=== PATIENT | female | born 2000 | race Caucasian/White ===

== ENCOUNTER 2018-09-26 13:29 | Outpatient (CLI) | payer OTHER ==
--- NOTE | 2018-09-26 16:15 | US ---
EXAMINATION TYPE: US OB limited DATE OF EXAM: 09/26/2018 COMPARISON: NONE CLINICAL HISTORY: R/O ROM. pelvic pressure, leaking fluid. EXAM PERFORMED: GESTATIONAL AGE / DATING Physician Established: (29 weeks/6 days) EDC: 12/06/2018 SURVEY PLACENTA: Anterior PREVIA: No Previa Ultrasound evidence of abruption? SB: 14.6 cm Normal Ultrasound evidence of premature rupture of membranes? no CERVICAL LENGTH (transabdominal: norm > 3.0cm): 3.4 cm Ultrasound evidence of cervical incompetence? no PRESENTATION: Vertex HEART RATE: 129 bpm RHYTHM: Normal No suspicious cervical thinning. Normal cephalad presentation to fetus is seen. Single live intrauter ine gestation is noted. Amniotic fluid index is calculated within normal limits. IMPRESSION: As above.
[2018-09-26 18:26] VITALS: BP 115/71; PULSE 101; RESP 18; TEMP 97.4
--- NOTE | 2018-09-27 08:55 | P.MSEPDOC ---
Presenting Problems - Arrival Data Date of Arrival on Unit: 09/26/18 Time of Arrival on Unit: 13:40 Mode of Transport: Ambulatory - Complaint OB-Reason for Admission/Chief Complaint: Rule Out SROM Medical History - Information : 2 Para: 1 Term: 1 Abortions: Spontaneous or Elective: 0 Number of Living Children: 1 - Gestational Age Gestational Age by ISAI (wks/days): 29 Weeks and 6 Days Review of Systems - Review of Systems Constitutional: No problems Breast: No problems ENT: No problems Cardiovascular: No problems Respiratory: No problems Gastrointestinal: No problems Genitourinary: No problems Musculoskeletal: No problems Neurological: No problems Skin: No problems Vital Signs - Temperature Temperature: 97.4 F Temperature Source: Oral - Pulse Right Brachial Pulse Rate: 101 Pulse Assessment Method: Automatic Cuff - Respirations Respiratory Rate: 18 Oxygen Delivery Method: Room Air O2 Sat by Pulse Oximetry: 100 - Blood Pressure Right Arm Blood Pressure: 115/71 Blood Pressure Mean: 85 Blood Pressure Source: Automatic Cuff Medical Screen Scoring (Pre) - Cervical Exam Dilation: 0 cm = 0 Membranes: Intact - Uterine Contractions Frequency: N/A Duration: N/A Intensity: N/A - Maternal Vital Signs Maternal Temperature: N/A Maternal Blood Pressure: N/A Signs of Preeclampsia: N/A Maternal Respirations: N/A - Maternal Trauma Maternal Trauma: N/A - Assessment - Baby A Baseline FHR: 135 Heart Rate - NICHD Category: Category I (Normal) = 0 NST: Reactive Position: N/A Station: N/A - Total Score - Baby A Total Score - Baby A: 0 - Total Score - Baby B Total Score - Baby B: 0 - Total Score - Baby C Total Score - Baby C: 0 - Level of Risk - Baby A Level of Risk - Baby A: Low (0-5) - Level of Risk - Baby B Level of Risk - Baby B: Low (0-5) - Level of Risk - Baby C Level of Risk - Baby C: Low (0-5) Physician Notification (Pre) - Physician Notified Physician/Practitioner Notifed:: YES Spoke With: SWAPNA New Order Received: Yes - Notification Comment Comment: DISCH HOME. TO KEEP NEXT SCHED APPDavid CUM[facility]. Disposition - Disposition OB Disposition: Discharge to home Discharge Date: 09/26/18 Discharge Time: 15:45 I agree with the RN Medical Screening Exam: Yes Risk & Benefit of care provided described in d/c instruction: Yes Diagnosis: FALSE LABOR BEFORE 37 COMPLETED WEEKS OF GEST, THIRD TRI
== END 2018-09-26 15:45 | disposition home or self-care (01) ==
LOC: FBPOP 13:29
PROVIDERS: ATTEND Obstetrics & Gynecology
DX: O47.03 False labor before 37 completed weeks of gestation, third trimester (principal); Z3A.29 29 weeks gestation of pregnancy
CPT/HCPCS: 59025; 76815; G0463; 99213

== ENCOUNTER 2018-11-30 06:00 | Inpatient (IN) | payer OTHER ==
[2018-11-30] MEDS ORDERED: OXYTOCIN 10 UNIT/ML 1 ML VIAL IM PRN (06:35)
[2018-11-30] MEDS ORDERED: LIDOCAINE 0.5% (PF) 5 MG/ML (50 ML SDV) SQ PRN (06:35)
[2018-11-30] MEDS ORDERED: TERBUTALINE 1 MG/ML VIAL SQ PRN (06:35)
[2018-11-30] MEDS ORDERED: CARBOPROST TROMETHAMINE 250 MCG/ML 1 ML AMP IM PRN (06:35)
[2018-11-30] MEDS ORDERED: METHYLERGONOVINE 0.2 MG/ML 1 ML AMP IM PRN (06:35)
[2018-11-30] MEDS ORDERED: AMPICILLIN 2,000 MG in SODIUM CHLORIDE 0.9% 100 ML IVPB STA (06:35)
[2018-11-30] MEDS ORDERED: OXYTOCIN 30 UNITS/500 ML NS 30 UNIT in SALINE 1 500ML.BAG IV SCH (06:45)
[2018-11-30 06:50] VITALS: BMI 25.2
[2018-11-30] MEDS: LACTATED RINGERS 1,000 ML IV SCH ×2 (06:53→09:46)
[2018-11-30 07:14] LABS: Anisocytosis Slight; Basophils % (A) 0 %; Eosinophils # (A) 0.1 k/uL (0-0.7); Eosinophils % (A) 1 %; HCT 33.4 % (34.0-46.0); HGB 10.9 gm/dL (11.4-16.0); Hypochromasia Slight; Lymphocytes # (A) 1.9 k/uL (1.0-4.8); Lymphocytes % (A) 17 %; MCH 27.9 pg (25.0-35.0); MCHC 32.6 g/dL (31.0-37.0); MCV 85.7 fL (80.0-100.0); Mean Platelet Volume 11.3; Monocytes # (A) 0.7 k/uL (0-1.0); Monocytes % (A) 6 %; Neutrophils # (A) 8.2 k/uL (1.3-7.7); Neutrophils % (A) 75 %; RBC 3.89 m/uL (3.80-5.40); RDW 17.6 % (11.5-15.5)
[2018-11-30 08:02] LABS: Large Platelets Present; Platelet Count 220 k/uL (150-450)
[2018-11-30] MEDS ORDERED: BUTORPHANOL 1 MG/ML 1 ML VIAL IV PRN (08:31)
[2018-11-30] MEDS ORDERED: ROPIVACAINE 100 MG, fentaNYL (PF) 200 MCG in SODIUM CHLORIDE 0.9% 76 ML EPIDURAL ONE (10:03)
[2018-11-30] MEDS ORDERED: AMPICILLIN 1,000 MG in SODIUM CHLORIDE 0.9% 50 ML IVPB SCH (11:00)
[2018-11-30] MEDS ORDERED: diphenhydrAMINE 25 MG CAP PO PRN (12:58)
[2018-11-30] MEDS ORDERED: ZOLPIDEM 5 MG TAB PO PRN (12:58)
[2018-11-30] MEDS ORDERED: SIMETHICONE 80 MG CHEWABLE PO PRN (12:58)
[2018-11-30] MEDS ORDERED: WITCH HAZEL 1 EACH MED..PAD TOPICAL PRN (12:58)
[2018-11-30] MEDS ORDERED: HYDROCORTISONE 2.5% RECTAL CREAM 30 GM TUBE RECTAL PRN (12:58)
[2018-11-30] MEDS ORDERED: diphenhydrAMINE 50 MG CAP PO PRN (12:58)
[2018-11-30] MEDS ORDERED: LANOLIN CREAM 5 GM TUBE TOPICAL PRN (12:58)
[2018-11-30] MEDS ORDERED: BENZOCAINE/MENTHOL SPRAY 1 GM/SPRAY AEROSOL TOPICAL PRN (12:58)
[2018-11-30] MEDS ORDERED: OXYTOCIN 20 UNITS/1000 ML NS 1,000 ML IV SCH (13:00)
--- NOTE | 2018-11-30 17:04 | P.HPOB ---
History of Present Illness H&P Date: 11/30/18 Chief Complaint: Intrauterine at term: Induction of labor Patient is a 18-year-old at 39 weeks who is here for induction of labor. Her Precis course has been relatively unremarkable. 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 This she is 39 weeks and is dilated to 2-1/2 cm and artificial rupture membranes was performed clear fluid noted. There is a category 1 tracing noted. Otherwise her vital signs are stable and afebrile. Heart regular, lungs clear, extremities without pain. Abdomen soft gravid uterus is noted. Assessment intrauterine at term. Plan expect spontaneous vaginal delivery and plan is for an epidural for analgesia. Pitocin augmentation of labor. 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 Past Anesthesia/Blood Transfusion Reactions: No Reported Reaction Past Psychological History: No Psychological Hx Reported Smoking Status: Never smoker Past Alcohol Use History: None Reported Past Drug Use History: None Reported - Past Family History Father History Unknown: Yes Additional Family Medical History / Comment(s): pt adopted Mother History Unknown: Yes Additional Family Medical History / Comment(s): pt adopted Medications and Allergies Home Medications Medication Instructions Recorded Confirmed Type Pnv No.95/Ferrous Fum/Folic AC 1 b PO DAILY 09/26/18 11/30/18 History [ Multivitamin Tablet] Allergies Allergy/AdvReac Type Severity Reaction Status Date / Time No Known Allergies Allergy Verified 11/30/18 06:35 Exam Osteopathic Statement: *. No significant issues noted on an osteopathic structural exam other than those noted in the History and Physical/Consult. Vital Signs Temp Pulse Resp BP Pulse Ox 11/30/18 16:00 98.9 F 87 18 132/71 11/30/18 14:50 98.0 F 86 18 129/68 11/30/18 14:27 97.5 F L 75 18 127/67 11/30/18 13:50 97.3 F L 74 18 120/66 11/30/18 13:35 76 118/66 11/30/18 13:20 97.8 F 82 16 126/73 11/30/18 13:05 97.7 F 76 18 124/68 11/30/18 12:50 97.9 F 83 18 112/63 11/30/18 06:42 97.7 F 78 18 123/78 99 Intake and Output 11/30/18 11/30/18 11/30/18 06:59 14:59 22:59 Other: Weight 69.853 kg - OBG Physical Exam Breast: both: normal (no masses) Abdomen: bowel sounds normal, no diffuse tenderness, no bruit present, no guarding noted, no hepatomegaly, no splenomegaly, no mass Vulva: both: normal Vagina: normal moisture, no discharge Cervix: no lesion, no discharge Uterus: normal size, normal contour Adnexa: both: normal Anus/Rectum: normal perianal skin, no rectal mass, no hemorrhoids, heme negative Results Result Diagrams: 11/30/18 06:30 Abnormal Lab Results - Last 24 Hours (Table) 11/30/18 Range/Units 06:30 Hgb 10.9 L (11.4-16.0) gm/dL Hct 33.4 L (34.0-46.0) % RDW 17.6 H (11.5-15.5) % Neutrophils # 8.2 H (1.3-7.7) k/uL
--- NOTE | 2018-11-30 17:06 | P.PROBDLV ---
Vaginal Delivery Note - . Vaginal Delivery Note: Patient progressed complete and pushed with spontaneous vaginal delivery of a viable female over an intact perineum. Lung deliver the head anterior posterior shoulders were easily delivered with gentle downward upper traction followed by the remainder the baby. Mouth nares were then bulb suctioned and baby was delivered from left occiput anterior position baby was then placed on mother's abdomen where the umbilical cord was allowed to pulsate for 30 seconds prior to clamping and cutting with nursery personnel present to assume care. Placenta was then delivered intact and Pitocin was added to the IV. scores were 7 and 8 at one and 5 minutes respectively and weight was 7 lbs. 0 oz. Mother and baby are stable findings delivery.
[2018-11-30] MEDS: IBUPROFEN 600 MG TAB PO PRN (20:54)
[2018-11-30] MEDS: SENNOSIDES-DOCUSATE SODIUM 1 EACH TAB PO SCH (22:16)
[2018-12-01] MEDS: ACETAMINOPHEN TAB 325 MG TAB PO PRN ×2 (01:09→11:34)
[2018-12-01] MEDS: IBUPROFEN 600 MG TAB PO PRN ×3 (03:51→19:46)
[2018-12-01 07:07] LABS: Anisocytosis Slight; Basophils % (A) 0 %; Eosinophils # (A) 0.1 k/uL (0-0.7); Eosinophils % (A) 1 %; HCT 32.6 % (34.0-46.0); HGB 10.5 gm/dL (11.4-16.0); Hypochromasia Slight; Lymphocytes # (A) 1.7 k/uL (1.0-4.8); Lymphocytes % (A) 16 %; MCH 28.1 pg (25.0-35.0); MCHC 32.3 g/dL (31.0-37.0); Monocytes # (A) 0.8 k/uL (0-1.0); Monocytes % (A) 8 %; Neutrophils % (A) 74 %; Platelet Count 191 k/uL (150-450); RBC 3.74 m/uL (3.80-5.40); RDW 17.4 % (11.5-15.5); WBC 10.9 k/uL (4.0-11.0)
[2018-12-01] MEDS: SENNOSIDES-DOCUSATE SODIUM 1 EACH TAB PO SCH ×2 (08:12→19:41)
--- NOTE | 2018-12-01 08:38 | P.PNOBGVD ---
Subjective - Subjective Principal diagnosis: day 1 Interval history: Overall patient is doing very well. She is involuting, voiding and tolerating a diet. She voices no complaints. Vital signs are stable and afebrile. Heart regular, lungs clear, extremities without pain. Abdomen soft uterus is firm below the umbilicus. Lochia is reported be light. Assessment day 1. Plan continue care for now baby is in special care nursery. Patient reports: Reports appetite normal, Reports voiding normally, Reports pain well controlled, Reports ambulating normally : in NICU Objective - Latest Vital Signs Latest vital signs: Vital Signs Temp Pulse Resp BP 12/01/18 08:00 97.6 F 77 16 120/81 12/01/18 03:54 98.0 F 82 16 118/76 11/30/18 20:00 98.0 F 81 16 122/73 11/30/18 16:00 98.9 F 87 18 132/71 11/30/18 14:50 98.0 F 86 18 129/68 11/30/18 14:27 97.5 F L 75 18 127/67 11/30/18 13:50 97.3 F L 74 18 120/66 11/30/18 13:35 76 118/66 11/30/18 13:20 97.8 F 82 16 126/73 11/30/18 13:05 97.7 F 76 18 124/68 11/30/18 12:50 97.9 F 83 18 112/63 Intake and Output 11/30/18 12/01/18 12/01/18 22:59 06:59 14:59 Other: # Voids 1 2 - Exam Lungs: bilateral: normal Chest: Normal S1, Normal S2 Extremities: Present: normal Abdomen: Present: normal appearance, soft Uterus: Present: normal, firm - Labs Labs: Abnormal Lab Results - Last 24 Hours (Table) 12/01/18 Range/Units 06:51 RBC 3.74 L (3.80-5.40) m/uL Hgb 10.5 L (11.4-16.0) gm/dL Hct 32.6 L (34.0-46.0) % RDW 17.4 H (11.5-15.5) % Neutrophils # 8.0 H (1.3-7.7) k/uL
[2018-12-02 00:45] VITALS: RESP 18
--- NOTE | 2018-12-02 10:21 | P.DS ---
Providers Date of admission: 11/30/18 06:22 Expected date of discharge: 12/02/18 Attending physician: Jadon Sotelo Primary care physician: Stated None - Discharge Diagnosis(es) (1) Normal vaginal delivery Current Visit: Yes Status: Acute Hospital Course: Patient underwent normal vaginal delivery. She had an uncomplicated course herself. She is ambulating voiding without difficulty time regular diet and passing flatus. She will be discharged home day #2. She will follow-up with Dr. Sotelo in 6 weeks. Plan - Discharge Summary New Discharge Prescriptions: New Ibuprofen [Motrin] 600 mg PO Q6HR PRN #30 tab PRN Reason: Pain Docusate [Colace] 100 mg PO DAILY #30 capsule No Action Pnv No.95/Ferrous Fum/Folic AC [ Multivitamin Tablet] 1 b PO DAILY Discharge Medication List Pnv No.95/Ferrous Fum/Folic AC [ Multivitamin Tablet] 1 b PO DAILY 09/26/18 [History] Docusate [Colace] 100 mg PO DAILY #30 capsule 12/01/18 [Rx] Ibuprofen [Motrin] 600 mg PO Q6HR PRN #30 tab 12/01/18 [Rx] Follow up Appointment(s)/Referral(s): Jadon Sotelo DO [Doctor of Osteopathic Medicine] - 6 Weeks Activity/Diet/Wound Care/Special Instructions: No heavy lifting, limit stairs and driving, and pelvic rest. If any high temperatures, heavy bleeding, or severe pain call my office
[2018-12-02 11:13] VITALS: BP 122/70; PULSE 73; TEMP 98.1
== END 2018-12-02 14:30 | disposition home or self-care (01) | DRG 807 ==
LOC: 4FBP 06:22
PROVIDERS: ADMIT Obstetrics & Gynecology; ATTEND Obstetrics & Gynecology
PROC: 00HU33Z Insertion of Infusion Device into Spinal Canal, Percutaneous Approach (ICD-10-PCS; principal; 2018-11-30)
PROC: 3E0R3NZ Introduction of Analgesics, Hypnotics, Sedatives into Spinal Canal, Percutaneous Approach (ICD-10-PCS; principal; 2018-11-30)
PROC: 10907ZC Drainage of Amniotic Fluid, Therapeutic from Products of Conception, Via Natural or Artificial Opening (ICD-10-PCS; principal; 2018-11-30)
PROC: 10E0XZZ Delivery of Products of Conception, External Approach (ICD-10-PCS; principal; 2018-11-30)
DX: O80 Encounter for full-term uncomplicated delivery (principal); Z37.0 Single live birth; Z3A.39 39 weeks gestation of pregnancy
CPT/HCPCS: 85025; 86850; 86900; 86901; 88307

== ENCOUNTER 2019-04-20 16:39 | Emergency (ER) | payer OTHER ==
[2019-04-20 17:18] VITALS: TEMP 99.9
[2019-04-20] MEDS ORDERED: SODIUM CHLORIDE 0.9% 1,000 ML IV STA (18:10)
[2019-04-20] MEDS ORDERED: KETOROLAC 30 MG/ML 1 ML VIAL IVP STA (18:10)
[2019-04-20] MEDS ORDERED: ONDANSETRON 4 MG/2 ML VIAL IVP STA (18:10)
[2019-04-20] MEDS ORDERED: PANTOPRAZOLE 40 MG/10 ML VIAL IVP STA (18:10)
--- NOTE | 2019-04-20 18:15 | ED ---
General Adult HPI - General Chief complaint: Abdominal Pain Stated complaint: abd pain/dehydration Time Seen by Provider: 04/20/19 18:03 Source: patient Mode of arrival: ambulatory Limitations: no limitations - History of Present Illness Initial comments: Patient is a 18-year-old female with no significant past medical history presenting to the emergency Department with a chief complaint of right flank pain. She reports for about 2 weeks, she had a dry cough that has been gradually increasing severity. Over the course she reports a few episodes of posttussive emesis. She also reports a fever of 102. Patient reports she was coughing so hard she developed sudden onset of pain in the right flank region. Denies any popping sensation or sounds. She states pain is exacerbated with full inspiration. States the pain is also worse whenever she is coughing, with left right rotation. Denies any shortness of breath or chest pain. - Related Data Home Medications Medication Instructions Recorded Confirmed Pnv No.95/Ferrous Fum/Folic AC 1 b PO DAILY 09/26/18 11/30/18 [ Multivitamin Tablet] Previous Rx's Medication Instructions Recorded Docusate [Colace] 100 mg PO DAILY #30 capsule 12/01/18 Ibuprofen [Motrin] 600 mg PO Q6HR PRN #30 tab 12/01/18 Allergies Allergy/AdvReac Type Severity Reaction Status Date / Time No Known Allergies Allergy Verified 04/20/19 17:14 Review of Systems ROS Statement: Those systems with pertinent positive or pertinent negative responses have been documented in the HPI. ROS Other: All systems not noted in ROS Statement are negative. 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 Past Anesthesia/Blood Transfusion Reactions: No Reported Reaction Past Psychological History: No Psychological Hx Reported Smoking Status: Never smoker Past Alcohol Use History: None Reported Past Drug Use History: None Reported - Past Family History Father History Unknown: Yes Additional Family Medical History / Comment(s): pt adopted Mother History Unknown: Yes Additional Family Medical History / Comment(s): pt adopted General Exam Limitations: no limitations General appearance: alert, in no apparent distress Head exam: Present: atraumatic, normocephalic, normal inspection Eye exam: Present: normal appearance, PERRL, EOMI Pupils: Present: normal accommodation ENT exam: Present: normal exam, normal oropharynx, mucous membranes moist, TM's normal bilaterally, normal external ear exam Neck exam: Present: normal inspection, full ROM. Absent: lymphadenopathy Respiratory exam: Present: normal lung sounds bilaterally, chest wall tenderness (Right upper flank region). Absent: respiratory distress, wheezes, rales Cardiovascular Exam: Present: regular rate, normal rhythm, normal heart sounds GI/Abdominal exam: Present: soft, tenderness (Right upper quadrant). Absent: distended Extremities exam: Present: normal inspection, full ROM Back exam: Present: normal inspection, full ROM Neurological exam: Present: alert, oriented X3 Psychiatric exam: Present: normal affect, normal mood Skin exam: Present: warm, dry, intact, normal color Course Vital Signs 04/20/19 17:14 Temperature 99.9 F H Pulse Rate 130 H Respiratory 18 Rate Blood Pressure 103/69 O2 Sat by Pulse 99 Oximetry Medical Decision Making - Medical Decision Making Patient is 18-year-old female presenting to the emergency department with a chief complaint of right flank pain. Physical examination patient has right flank tenderness and some tenderness along the right upper quadrant, although it appears to be more rib pain, rather then visceral pain. CBC and CMP are unremarkable. Chest x-ray is negative for pneumonia or any acute cardio pulmonary pathologies. No signs of any rib fractures. I suspect the patient has muscle strain of the chest wall causing her to symptoms. The cough is most likely bronchitis. Patient was discharged with an antitussive. Patient vised alternate between Tylenol and ibuprofen for pain control. Patient vised to return to emergency department if symptoms worsen. Strict return parameters were thoroughly discussed the patient was understanding and agreeable. She was advised to follow with primary care. Case discussed with physician. - Lab Data Result diagrams: 04/20/19 18:05 04/20/19 18:05 Lab Results 04/20/19 04/20/19 04/20/19 Range/Units 18:05 18:05 18:45 WBC 6.7 (4.0-11.0) k/uL RBC 4.97 (3.80-5.40) m/uL Hgb 14.4 (11.4-16.0) gm/dL Hct 43.7 (34.0-46.0) % MCV 87.9 (80.0-100.0) fL MCH 29.1 (25.0-35.0) pg MCHC 33.1 (31.0-37.0) g/dL RDW 12.4 (11.5-15.5) % Sodium 140 (137-145) mmol/L Potassium 4.2 (3.5-5.1) mmol/L Chloride 102 (98-107) mmol/L Carbon Dioxide 29 (22-30) mmol/L Anion Gap 9 mmol/L BUN 16 (7-17) mg/dL Creatinine 0.83 (0.52-1.04) mg/dL Est GFR (CKD-EPI)AfAm >90 (>60 ml/min/1.73 sqM) Est GFR (CKD-EPI)NonAf >90 (>60 ml/min/1.73 sqM) Glucose 97 (74-99) mg/dL Calcium 9.3 (8.4-10.2) mg/dL Total Bilirubin 0.6 (0.2-1.3) mg/dL AST 22 (14-36) U/L ALT 10 (4-34) U/L Alkaline Phosphatase 83 (38-126) U/L Total Protein 7.9 (6.3-8.2) g/dL Albumin 4.6 (3.5-5.0) g/dL Amylase 47 (30-110) U/L Lipase 59 (23-300) U/L Urine Color Urine Appearance (Clear) Urine pH (5.0-8.0) Ur Specific Harmon (1.001-1.035) Urine Protein (Negative) Urine Glucose (UA) (Negative) Urine Ketones (Negative) Urine Blood (Negative) Urine Nitrite (Negative) Urine Bilirubin (Negative) Urine Urobilinogen (<2.0) mg/dL Ur Leukocyte Esterase (Negative) Urine RBC (0-5) /hpf Urine WBC (0-5) /hpf Ur Squamous Epith Cells (0-4) /hpf Urine Bacteria (None) /hpf Urine Mucus (None) /hpf Urine HCG, Qual Not Detected (Not Detectd) 04/20/19 Range/Units 18:45 WBC (4.0-11.0) k/uL RBC (3.80-5.40) m/uL Hgb (11.4-16.0) gm/dL Hct (34.0-46.0) % MCV (80.0-100.0) fL MCH (25.0-35.0) pg MCHC (31.0-37.0) g/dL RDW (11.5-15.5) % Sodium (137-145) mmol/L Potassium (3.5-5.1) mmol/L Chloride (98-107) mmol/L Carbon Dioxide (22-30) mmol/L Anion Gap mmol/L BUN (7-17) mg/dL Creatinine (0.52-1.04) mg/dL Est GFR (CKD-EPI)AfAm (>60 ml/min/1.73 sqM) Est GFR (CKD-EPI)NonAf (>60 ml/min/1.73 sqM) Glucose (74-99) mg/dL Calcium (8.4-10.2) mg/dL Total Bilirubin (0.2-1.3) mg/dL AST (14-36) U/L ALT (4-34) U/L Alkaline Phosphatase (38-126) U/L Total Protein (6.3-8.2) g/dL Albumin (3.5-5.0) g/dL Amylase (30-110) U/L Lipase (23-300) U/L Urine Color Yellow Urine Appearance Clear (Clear) Urine pH 5.5 (5.0-8.0) Ur Specific Harmon 1.029 (1.001-1.035) Urine Protein Trace H (Negative) Urine Glucose (UA) Negative (Negative) Urine Ketones Trace H (Negative) Urine Blood Negative (Negative) Urine Nitrite Negative (Negative) Urine Bilirubin Negative (Negative) Urine Urobilinogen <2.0 (<2.0) mg/dL Ur Leukocyte Esterase Moderate H (Negative) Urine RBC 1 (0-5) /hpf Urine WBC 3 (0-5) /hpf Ur Squamous Epith Cells 5 H (0-4) /hpf Urine Bacteria Rare H (None) /hpf Urine Mucus Few H (None) /hpf Urine HCG, Qual (Not Detectd) Disposition Clinical Impression: Chest wall muscle strain Disposition: ADMITTED IP TO THIS HOSP Condition: Stable Instructions (If sedation given, give patient instructions): Muscle Strain (DC) Additional Instructions: Please follow with primary care. Take prescribed medication as directed. Return to emergency department if symptoms worsen. Is patient prescribed a controlled substance at d/c from ED?: No Referrals: None,Stated [Primary Care Provider] - 1-2 days Time of Disposition: 19:35
[2019-04-20 18:42] LABS: ALT 10 U/L (4-34); AST 22 U/L (14-36); African American GFR (CKD) >90 (>60 ml/min/1.73 sqM); Albumin 4.6 g/dL (3.5-5.0); Alkaline Phosphatase 83 U/L (38-126); Amylase 47 U/L (30-110); Anion Gap 9 mmol/L; Blood Urea Nitrogen 16 mg/dL (7-17); Calcium 9.3 mg/dL (8.4-10.2); Carbon Dioxide 29 mmol/L (22-30); Chloride 102 mmol/L (98-107); Glucose 97 mg/dL (74-99); Non-African American GFR(CKD) >90 (>60 ml/min/1.73 sqM); Potassium 4.2 mmol/L (3.5-5.1); Sodium 140 mmol/L (137-145); Total Bilirubin 0.6 mg/dL (0.2-1.3); Total Protein 7.9 g/dL (6.3-8.2)
[2019-04-20 18:44] LABS: Basophils % (A) 0 %; Eosinophils % (A) 0 %; HCT 43.7 % (34.0-46.0); HGB 14.4 gm/dL (11.4-16.0); Lymphocytes # (A) 0.7 k/uL (1.0-4.8); Lymphocytes % (A) 10 %; MCH 29.1 pg (25.0-35.0); MCHC 33.1 g/dL (31.0-37.0); MCV 87.9 fL (80.0-100.0); Mean Platelet Volume 11.2; Monocytes # (A) 0.5 k/uL (0-1.0); Monocytes % (A) 8 %; Neutrophils # (A) 5.3 k/uL (1.3-7.7); Neutrophils % (A) 79 %; Platelet Count 186 k/uL (150-450); RBC 4.97 m/uL (3.80-5.40); RDW 12.4 % (11.5-15.5); WBC 6.7 k/uL (4.0-11.0)
[2019-04-20 19:03] LABS: Appearance,Urine Clear (Clear); Bacteria,Urine Rare /hpf; Bilirubin,Urine Negative (Negative); Blood,Urine Negative (Negative); Color,Urine Yellow; Glucose,Urine (UA) Negative (Negative); Ketones,Urine Trace (Negative); Leukocyte Esterase,Urine Moderate (Negative); Mucus,Urine Few /hpf; Nitrite,Urine Negative (Negative); PH, Urine 5.5 (5.0-8.0); Protein,Urine Trace (Negative); RBC,Urine 1 /hpf (0-5); Specific Gravity,Urine 1.029 (1.001-1.035); Squamous Epithelial Cell,Urine 5 /hpf (0-4); Urobilinogen,Urine <2.0 mg/dL (<2.0); WBC,Urine 3 /hpf (0-5)
--- NOTE | 2019-04-20 19:20 | XR ---
EXAMINATION TYPE: XR ribs RT w pa chest xray DATE OF EXAM: 04/20/2019 COMPARISON: Chest x-ray 02/22/1999 HISTORY: Rib pain TECHNIQUE: Right ribs are examined in 2 projections each supplemented with a frontal chest. FINDINGS: Heart size is normal. Pulmonary vasculature is normal. Lungs are clear. No pneumothorax is evident. The graft right ribs appear intact. No pneumothorax is evident. IMPRESSION: 1. Normal right ribs
[2019-04-20 19:24] LABS: Large Platelets Present
[2019-04-20 19:55] VITALS: BP 106/66; PULSE 83; RESP 16
== END 2019-04-20 20:00 | disposition other institution (70) ==
LOC: EC 16:39
DX: S29.011A Strain of muscle and tendon of front wall of thorax, initial encounter (principal)
CPT/HCPCS: 36415; 80053; 82150; 83690; 85025; 81001; 81025; 71101; 99285; 96374; 96375 ×2; 96361; J2405; J1885; C9113

== ENCOUNTER 2020-04-05 20:17 | Emergency (ER) | payer OTHER ==
[2020-04-05] MEDS ORDERED: METOCLOPRAMIDE 10 MG TAB PO STA (20:38)
[2020-04-05 20:42] LABS: Glucose,Whole Blood 82 mg/dL (75-99)
--- NOTE | 2020-04-05 20:54 | ED ---
General Adult HPI - General Chief complaint: Head Injury Stated complaint: [facility] Head Injury Time Seen by Provider: 04/05/20 20:28 Source: patient, family Mode of arrival: ambulatory Limitations: no limitations - History of Present Illness Initial comments: 19-year-old female patient presents to the emergency department today for evaluation after sustaining a head injury at work. Patient states around 4:50 this afternoon she was bending over putting something in a safe when her coworker open the safe above her. She states she stood up and hit her head on the open door. She denies any loss of consciousness or significant pain at the time of injury, but states that about 2 hours later started to feel dizzy, nauseated, tired, and was experiencing "mental fog". Denies any headache. Denies blurred or double vision. She is 23 weeks with her third . Denies any recent nausea or vomiting. Denies any neck pain. Denies numbness, tingling, or weakness to the extremities. Patient denies any recent rash, fever, chills, cough, shortness of breath, chest pain, abdominal pain, diarrhea, constipation, back pain, numbness, tingling, dizziness, weakness, hematuria, dysuria, urinary urgency, urinary frequency, or any other complaints. - Related Data Home Medications Medication Instructions Recorded Confirmed No Known Home Medications 04/05/20 04/05/20 Allergies Allergy/AdvReac Type Severity Reaction Status Date / Time No Known Allergies Allergy Verified 04/05/20 20:57 Review of Systems ROS Statement: Those systems with pertinent positive or pertinent negative responses have been documented in the HPI. ROS Other: All systems not noted in ROS Statement are negative. 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 Past Anesthesia/Blood Transfusion Reactions: No Reported Reaction Past Psychological History: No Psychological Hx Reported Smoking Status: Never smoker Past Alcohol Use History: None Reported Past Drug Use History: None Reported - Past Family History Father History Unknown: Yes Additional Family Medical History / Comment(s): pt adopted Mother History Unknown: Yes Additional Family Medical History / Comment(s): pt adopted General Exam Limitations: no limitations General appearance: alert, in no apparent distress, other (This is a well- developed, well-nourished adult female patient in no acute distress. Vital signs upon presentation are temperature 98.5F, pulse 88, respirations 20, blood pressure 119/76, pulse ox 100% on room air.) Head exam: Present: other (Tenderness over right frontal scalp. No bony step off or deformity noted. ) Eye exam: Present: normal appearance, PERRL, EOMI. Absent: scleral icterus, conjunctival injection, nystagmus, periorbital swelling Neck exam: Present: normal inspection, full ROM, other (Nontender, no step-off, no deformity to firm midline palpation of the posterior cervical spine. Full range of motion without pain or limitation.). Absent: tenderness, meningismus, lymphadenopathy Cardiovascular Exam: Present: regular rate, normal rhythm, normal heart sounds. Absent: systolic murmur, diastolic murmur, rubs, gallop, clicks GI/Abdominal exam: Present: soft, normal bowel sounds. Absent: distended, tenderness, guarding, rebound, rigid Neurological exam: Present: alert, oriented X3, CN II-XII intact Psychiatric exam: Present: normal affect, normal mood Skin exam: Present: warm, dry, intact, normal color. Absent: rash Course Vital Signs 04/05/20 20:19 Temperature 98.5 F Pulse Rate 88 Respiratory 20 Rate Blood Pressure 119/76 O2 Sat by Pulse 100 Oximetry Medical Decision Making - Medical Decision Making 19-year-old female patient presents to the emergency department today for evalua tion after sustaining a head injury at work. Physical examination is unremarkable. She is neurologically intact with no focal deficits. She is 23 weeks reporting no abdominal or vaginal symptoms. Labor and delivery did perform heart tones they were within normal range. Blood sugar was 82. We did discuss risks versus benefits of computed tomography scan. As she is she would like to forego the scan at this time. We did discuss signs or symptoms of worsening head injury she will return for computed tomography scan if her symptoms worsen. She'll be discharged to follow up with employee health services as needed. Return parameters were discussed in detail. She verbalizes understanding and agrees this plan. - Lab Data Lab Results 04/05/20 Range/Units 20:40 POC Glucose (mg/dL) 82 (75-99) mg/dL POC Glu Assistant [employer] Manager ID Cancino, Jess Disposition Clinical Impression: Head injury Disposition: HOME SELF-CARE Condition: Good Instructions (If sedation given, give patient instructions): Concussion (ED) Additional Instructions: Rest. Follow-up with employee health services as needed. Decrease significant physical and mental activity. Follow-up with your primary care physician for recheck in 1-2 days. Return to the emergency department for any new, worsening, or concerning symptoms. Is patient prescribed a controlled substance at d/c from ED?: No Referrals: None,Stated [Primary Care Provider] - 1-2 days Time of Disposition: 21:10
[2020-04-05 21:29] VITALS: BP 106/64; PULSE 83; RESP 18; TEMP 98.1
== END 2020-04-05 21:27 | disposition home or self-care (01) ==
LOC: EC 20:17
DX: O9A.212 Injury, poisoning and certain other consequences of external causes complicating pregnancy, second trimester (principal); S09.90XA Unspecified injury of head, initial encounter; Z3A.23 23 weeks gestation of pregnancy; W22.8XXA Striking against or struck by other objects, initial encounter; Y92.69 Other specified industrial and construction area as the place of occurrence of the external cause; Y99.0 Civilian activity done for income or pay
CPT/HCPCS: 36415; 99283

== ENCOUNTER 2020-07-16 06:15 | Inpatient (IN) | payer OTHER ==
[2020-07-16] MEDS ORDERED: OXYTOCIN 10 UNIT/ML 1 ML VIAL IM PRN (06:52)
[2020-07-16] MEDS ORDERED: TERBUTALINE 1 MG/ML VIAL SQ PRN (06:52)
[2020-07-16] MEDS ORDERED: LIDOCAINE 0.5% (PF) 5 MG/ML (50 ML SDV) SQ PRN (06:52)
[2020-07-16] MEDS ORDERED: CARBOPROST TROMETHAMINE 250 MCG/ML 1 ML AMP IM PRN (06:52)
[2020-07-16] MEDS ORDERED: METHYLERGONOVINE 0.2 MG/ML 1 ML AMP IM PRN (06:52)
[2020-07-16] MEDS ORDERED: AMPICILLIN 2,000 MG in SODIUM CHLORIDE 0.9% 100 ML IVPB STA (06:59)
[2020-07-16] MEDS ORDERED: LACTATED RINGERS 1,000 ML IV SCH (07:00)
[2020-07-16] MEDS ORDERED: OXYTOCIN 30 UNITS/500 ML NS 30 UNIT in SALINE 1 500ML.BAG IV SCH (07:00)
[2020-07-16 07:27] LABS: HCT 36.1 % (34.0-46.0); HGB 11.9 gm/dL (11.4-16.0); MCH 29.8 pg (25.0-35.0); MCV 90.4 fL (80.0-100.0); Mean Platelet Volume 11.2; Platelet Count 193 k/uL (150-450); RDW 13.3 % (11.5-15.5); WBC 15.6 k/uL (3.8-10.6)
[2020-07-16 08:47] LABS: Band Neutrophils % 1 %; Eosinophils # (M) 0.16 k/uL (0-0.7); Large Platelets Present; Lymphocytes # (M) 1.72 k/uL (1.0-4.8); Metamyelocytes # (M) 0.16 k/uL (0); Metamyelocytes % 1 %; Monocytes # (M) 0.94 k/uL (0-1.0); Neutrophils % (M) 82 %; Nucleated Red Blood Cells 0 /100 WBC (0-0); Total Cells Counted 200
[2020-07-16] MEDS ORDERED: CITRIC ACID-SODIUM CITRATE 15 ML CUP PO ONE (10:33)
[2020-07-16] MEDS ORDERED: OXYTOCIN 10 UNIT/ML 1 ML VIAL ONE (10:46)
[2020-07-16] MEDS ORDERED: MORPHINE SULFATE (PF) 0.3 MG/0.3 ML SYR ONE (10:46)
[2020-07-16] MEDS ORDERED: KETOROLAC 15 MG/ML 1 ML VIAL ONE (10:46)
[2020-07-16] MEDS ORDERED: AMPICILLIN 1,000 MG in SODIUM CHLORIDE 0.9% 50 ML IVPB SCH (11:00)
[2020-07-16] MEDS ORDERED: diphenhydrAMINE 25 MG CAP PO PRN (12:04)
[2020-07-16] MEDS ORDERED: diphenhydrAMINE 50 MG/ML 1 ML VIAL IVP PRN ×2 (12:04)
[2020-07-16] MEDS ORDERED: diphenhydrAMINE 50 MG CAP PO PRN (12:04)
[2020-07-16] MEDS ORDERED: ZOLPIDEM 5 MG TAB PO PRN (12:04)
[2020-07-16] MEDS ORDERED: ONDANSETRON 4 MG/2 ML VIAL IVP PRN ×2 (12:04→17:52)
[2020-07-16] MEDS ORDERED: NALOXONE 0.4 MG/ML 1 ML VIAL IV PRN (12:04)
[2020-07-16] MEDS ORDERED: METOCLOPRAMIDE 5 MG/ML 2 ML VIAL IVP PRN (12:04)
--- NOTE | 2020-07-16 12:08 | P.HPOB ---
History of Present Illness H&P Date: 07/16/20 Chief Complaint: Uterine at term: IUGR: Induction of labor Patient is a 20-year-old at 37 weeks gestation who ryes for induction of labor. She is had intrauterine growth restriction versus SGA for several weeks and was seen by maternal- medicine who advised early delivery. Due to same she is planned for induction of labor with Pitocin augmentation of labor and she plans to use IV pain medication. Her Precis course otherwise was unremarkable and other than her remote history of Arnold-Chiari malformation with repair she has no other significant medical problems. She is dilated to 2 cm artificial rupture membranes was performed and clear fluid is noted. A category 1 tracing is noted. Amsler was provided for groupie strep prophylaxis. 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 Past Anesthesia/Blood Transfusion Reactions: No Reported Reaction Past Psychological History: No Psychological Hx Reported Smoking Status: Never smoker Past Alcohol Use History: None Reported Past Drug Use History: None Reported - Past Family History Father History Unknown: Yes Additional Family Medical History / Comment(s): pt adopted Mother History Unknown: Yes Additional Family Medical History / Comment(s): pt adopted Medications and Allergies Home Medications Medication Instructions Recorded Confirmed Type No Known Home Medications 04/05/20 07/16/20 History Allergies Allergy/AdvReac Type Severity Reaction Status Date / Time No Known Allergies Allergy Verified 07/16/20 06:52 Exam Osteopathic Statement: *. No significant issues noted on an osteopathic structural exam other than those noted in the History and Physical/Consult. Vital Signs Temp Pulse Resp BP 07/16/20 06:51 97.1 F L 101 H 16 128/72 Intake and Output 07/15/20 07/16/20 07/16/20 22:59 06:59 14:59 Other: Weight 75.296 kg - OBG Physical Exam Breast: both: normal (no masses) Abdomen: bowel sounds normal, no diffuse tenderness, no bruit present, no guar ding noted, no hepatomegaly, no splenomegaly, no mass Vulva: both: normal Vagina: normal moisture, no discharge Cervix: no lesion, no discharge Uterus: normal size, normal contour Adnexa: both: normal Anus/Rectum: normal perianal skin, no rectal mass, no hemorrhoids, heme negative Results Result Diagrams: 07/16/20 06:59 Abnormal Lab Results - Last 24 Hours (Table) 07/16/20 Range/Units 06:59 WBC 15.6 H (3.8-10.6) k/uL Neutrophils # (Manual) 12.90 H (1.3-7.7) k/uL Metamyelocytes # (Man) 0.16 H (0) k/uL
--- NOTE | 2020-07-16 12:12 | P.OP ---
Date of Procedure: 07/16/20 Preoperative Diagnosis: Intrauterine at term: tachycardia remote from delivery: IUGR Postoperative Diagnosis: Same Procedure(s) Performed: Primary low transverse section Anesthesia: spinal Surgeon: Jadon Sotelo Fisher Oyster #1: Kodi Manzanares Estimated Blood Loss (ml): 200 Pathology: other (Placenta) Condition: stable Disposition: floor Operative Findings: During the course of labor owing artificial rupture membranes the baby began having slow rise to tachycardia with at least initially minimal variability. There is some question as to whether or not there were late decelerations but could not correlate well with the contraction pattern. Due to no change despite oxygen therapy and IV fluid bolus a decision to move forward with the section was made. It is noted that during digital exam she was dilated 3/2 cm and that the baby did have rising heart rate with scalp stimulation. Risks/benefits were reviewed with patient in detail and all questions were answered for her prior to proceeding to the operative room Description of Procedure: Patient was taken to the operating suite where a spinal anesthetic was found be adequate. She was prepped and draped in the normal sterile fashion and placed in the dorsal supine position with leftward tilt. Initially a Pfannenstiel skin incision was made and this incision was then carried through to the underlying layer of the fascia with the second knife. Fascia was then nicked in the midline and this opening was extended laterally with Reddy scissors. Superior and inferior aspect of this incision were then grasped tented up and bluntly and sharply dissected off the rectus muscles. Rectus muscles were then divided midline and sharp dissection the peritoneum was done. This opening was then extended superiorly and inferiorly with good visualization of both bowel bladder. Bladder blade was then placed bladder flap identified. It was entered with metastases scissors carried across face uterus and bluntly dissected out of the operative field. Knife was then used to incise uterus this opening was fully developed with hemostat. This incision was then extended bluntly and head was atraumatically delivered. Mouth nares were bulb suctioned on the abdomen. Interim posterior shoulders were then gently delivered with traction and the remainder the baby. Umbilical cord was then clamped cut usual fashion an nursery personnel from special care and the reaming machine operator were present at delivery. Once this was completed placenta was delivered intact and Pitocin was added to the IV. Uterus was then exteriorized cleared of clots and debris and closed in 2 layers with 0 Vicryl suture. Once excellent hemostasis was obtained blood and debris was suctioned from the posterior cul-de-sac and the uterus was reinserted into the abdomen. Peritoneal layer was then reapproximated with 3-0 Vicryl. Fascial layer was closed with 0 Vicryl. The cutaneous layer was then reapproximated with 3-0 Vicryl to close the space and reapproximate skin. Skin was then closed with 3-0 Vicryl subcuticular. Sponge, lap, needle counts were all correct 2. Patient was then taken to the recovery room in stable and satisfactory condition. Viable male scores of 7 and 8 at one and 5 minutes respectively and weight was 5 lbs. 8 oz. was taken to special care nursery for observation and care.
[2020-07-16] MEDS: LACTATED RINGERS 1,000 ML IV SCH (13:36)
--- NOTE | 2020-07-16 18:30 | P.PN ---
Progress Note - Text Progress Note Date: 07/16/20 She is seen and evaluated this afternoon. Since the section she's had persistent nausea and vomiting and significant vertiginous dizziness. She relates that if she moves her head or illicit up that she becomes very nauseous and has thrown up against the room spins. There is unclear etiology regarding this. She does have a history of Arnold-Chiari malformation and a intention tremor but is unclear why a section her spinal anesthetic, following repair of her repaired Arnold-Chiari malformation as a child would cause these types of symptoms. We did speak with anesthesia but they have no real recommendations for further treatment. It is still from my standpoint possible that she has some type posterior dural/spinal headache that is presenting as vertigo and severe nausea and vomiting but as she has no headache at this time anesthesia does not believe that this is likely the case. Stat CBC and glucose have been ordered. Consideration for neuro consultation is being made if the stat CBC shows normal values for CBC and glucose is normal likely will add scopolamine patch to try cataract her symptoms. I did spend at least 10 minutes at bedside with her discussing symptoms trying to better delineate what could be causing her current discomfort. She does relate that she has no headache at this time. She states that she has no significant abdominal surgical pain other than when she is having her uterus massaged for clots area she does have good resolution of the spinal and good movement of her legs bilaterally. Muscle strength appears intact. There is no visual changes were laterality to her symptoms.
[2020-07-16] MEDS: KETOROLAC 15 MG/ML 1 ML VIAL IVP SCH ×2 (18:32→23:50)
[2020-07-16 18:39] LABS: Basophils % (A) 0 %; Eosinophils # (A) 0.1 k/uL (0-0.7); Eosinophils % (A) 1 %; HCT 33.9 % (34.0-46.0); HGB 11.6 gm/dL (11.4-16.0); Lymphocytes # (A) 0.7 k/uL (1.0-4.8); Lymphocytes % (A) 4 %; MCH 30.8 pg (25.0-35.0); MCHC 34.2 g/dL (31.0-37.0); MCV 90.1 fL (80.0-100.0); Mean Platelet Volume 11.7; Monocytes # (A) 0.9 k/uL (0-1.0); Monocytes % (A) 5 %; Neutrophils # (A) 14.9 k/uL (1.3-7.7); Neutrophils % (A) 89 %; Platelet Count 159 k/uL (150-450); RBC 3.77 m/uL (3.80-5.40); RDW 12.9 % (11.5-15.5); WBC 16.8 k/uL (3.8-10.6)
[2020-07-16 18:46] LABS: Glucose 86 mg/dL (74-99)
[2020-07-16 21:05] LABS: ALT 8 U/L (4-34); AST 21 U/L (14-36); African American GFR (CKD) >90 (>60 ml/min/1.73 sqM); Alkaline Phosphatase 166 U/L (38-126); Anion Gap 6 mmol/L; Blood Urea Nitrogen 7 mg/dL (7-17); Calcium 8.6 mg/dL (8.4-10.2); Carbon Dioxide 21 mmol/L (22-30); Chloride 104 mmol/L (98-107); Non-African American GFR(CKD) >90 (>60 ml/min/1.73 sqM); Potassium 3.9 mmol/L (3.5-5.1); Sodium 131 mmol/L (137-145); Total Bilirubin 0.7 mg/dL (0.2-1.3); Total Protein 5.9 g/dL (6.3-8.2)
[2020-07-16] MEDS: SENNOSIDES-DOCUSATE SODIUM 1 EACH TAB PO SCH (23:51)
[2020-07-17 01:06] LABS: Appearance,Urine Cloudy (Clear); Bilirubin,Urine Negative (Negative); Blood,Urine Large (Negative); Color,Urine Dark Yellow; Glucose,Urine (UA) Trace (Negative); Ketones,Urine 1+ (Negative); Leukocyte Esterase,Urine Moderate (Negative); Mucus,Urine Many /hpf; Nitrite,Urine Negative (Negative); PH, Urine 6.5 (5.0-8.0); Protein,Urine 2+ (Negative); RBC,Urine >182 /hpf (0-5); Specific Gravity,Urine 1.043 (1.001-1.035); Squamous Epithelial Cell,Urine 2 /hpf (0-4); WBC,Urine 71 /hpf (0-5)
[2020-07-17] MEDS: LACTATED RINGERS 1,000 ML IV SCH (03:42)
--- NOTE | 2020-07-17 06:00 | CONS ---
CONSULTATION REASON FOR CONSULTATION: Advice regarding weakness and dehydration, requested by Dr. Sotelo. HISTORY: This 20-year-old woman with a past medical history of Arnold-Chiari malformation which was repair at the age of 3, being followed by no primary care physician in the outpatient setting underwent section this morning. The patient subsequently had some weakness and the patient was mildly confused and subsequently patient was found to be dehydrated. The patient was given IV fluids with significant improvement in symptoms. The patient is being evaluated at this time. White count is elevated to 16.2. Other labs are pending at this time. There is no history of fever, rigors, chills. No history of headache, loss of consciousness, seizures. PAST MEDICAL HISTORY: History of Arnold-Chiari malformation surgery at the age of 3. MEDICATIONS ARE: None. ALLERGIES: None. FAMILY HISTORY: Patient is adopted. SOCIAL HISTORY: No history of smoking. No alcohol. REVIEW OF SYSTEMS: ENT: No diminished vision or hearing. CARDIOVASCULAR: No angina or palpitations. RESPIRATORY: No cough or hemoptysis. GI: As mentioned earlier. : As mentioned earlier. NERVOUS SYSTEM: As mentioned earlier. ALLERGY/IMMUNOLOGY: No asthma or hayfever. MUSCULOSKELETAL: As mentioned earlier. HEMATOLOGY: No history of anemia. ENDOCRINE: No history of diabetes or hypothyroidism. CONSTITUTIONAL: As mentioned earlier. DERMATOLOGY: Negative. RHEUMATOLOGY: Negative. PSYCHIATRY: As mentioned earlier. PHYSICAL EXAMINATION: GENERAL: Patient is alert and oriented times three. VITAL SIGNS: Pulse 92, blood pressure 109/58, respirations 16, temperature 99.2, pulse ox 96% on room air. HEENT: Conjunctivae normal. NECK: No jugular venous distention. No carotid bruits. No lymph node enlargement. RESPIRATORY: Breath sounds diminished at the bases. No rhonchi, no crackles. HEART: S1 and S2, muffled. ABDOMEN: Soft, status post section. EXTREMITIES: No edema, no swelling. NERVOUS: Higher functions as mentioned earlier. Moves all four limbs. No focal motor or sensory deficits. LYMPHATICS: No lymph nodes palpable in the neck or axillae. SKIN: No rashes. JOINTS: No active deforming arthropathy. LAB STUDIES: WBC 16.2, hemoglobin 11.6. Other labs are pending. ASSESSMENT: 1. Status post section. 2. Possible dehydration. 3. Increased WBC, possibly reactive. Rule out urinary tract infection. 4. 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 RECOMMENDATIONS AND DISCUSSION: In this 20-year-old woman who presented after surgery, possible dehydration. The patient is receiving IV fluids, which is significant improvement in symptoms. I would also recommend doing basic labs to confirm normalcy. Otherwise UA with micro is also being recommended. We will follow the patient closely. The patient may be asked to follow with primary physician closely after discharge. Thank you Dr. Sotelo for letting us participate in the care of this patient. MMODL / IJN: [id number] /
[2020-07-17 06:36] LABS: Basophils % (A) 0 %; Eosinophils # (A) 0.1 k/uL (0-0.7); Eosinophils % (A) 1 %; HCT 29.7 % (34.0-46.0); HGB 10.4 gm/dL (11.4-16.0); Lymphocytes % (A) 6 %; MCH 31.7 pg (25.0-35.0); MCHC 35.1 g/dL (31.0-37.0); MCV 90.2 fL (80.0-100.0); Monocytes % (A) 6 %; Neutrophils # (A) 14.4 k/uL (1.3-7.7); Neutrophils % (A) 87 %; Platelet Count 173 k/uL (150-450); RBC 3.29 m/uL (3.80-5.40); WBC 16.6 k/uL (3.8-10.6)
[2020-07-17 06:46] LABS: African American GFR (CKD) >90 (>60 ml/min/1.73 sqM); Anion Gap 4 mmol/L; Blood Urea Nitrogen 7 mg/dL (7-17); Calcium 8.5 mg/dL (8.4-10.2); Carbon Dioxide 24 mmol/L (22-30); Chloride 103 mmol/L (98-107); Glucose 88 mg/dL (74-99); Non-African American GFR(CKD) >90 (>60 ml/min/1.73 sqM); Potassium 3.9 mmol/L (3.5-5.1); Sodium 131 mmol/L (137-145)
[2020-07-17] MEDS: KETOROLAC 15 MG/ML 1 ML VIAL IVP SCH ×2 (07:40→12:55)
[2020-07-17] MEDS: SENNOSIDES-DOCUSATE SODIUM 1 EACH TAB PO SCH ×2 (07:40→20:47)
--- NOTE | 2020-07-17 08:08 | P.PNOBGPC ---
Subjective - Subjective Principal diagnosis: Postop day 1 Interval history: Patient is seen and evaluated. She is feeling much improved. Her nausea and vomiting has resolved as has the vertiginous symptoms. We'll plan to continue care for now. Advancement of diet and ambulation. She at this time is having some difficulty voiding that is not necessarily usual will monitor that situation closely. Vital signs are stable. She is afebrile. Heart regular, lungs clear, extremities without pain. Abdomen soft uterus is firm and lochia is reported be light. We'll plan to remove dressing later today. All other questions are answered for her at this time. Assessment postop day 1. Plan continue current care. Objective - Vital Signs Latest vital signs: Vital Signs Temp Pulse Resp BP Pulse Ox 07/17/20 07:56 99.4 F 93 16 102/65 07/17/20 03:56 99.3 F 85 16 109/54 97 07/17/20 00:00 98.9 F 99 16 112/70 98 07/16/20 20:00 99.2 F 93 16 109/58 96 07/16/20 16:00 99.1 F 97 14 121/69 07/16/20 13:37 96.1 F L 93 14 111/70 98 07/16/20 13:00 74 14 108/68 99 07/16/20 12:30 97.6 F 85 14 109/67 100 07/16/20 12:15 76 16 101/63 100 07/16/20 12:00 97.2 F L 75 14 99/55 100 07/16/20 11:45 74 14 99/53 97 07/16/20 11:30 97.2 F L 88 14 109/59 99 Intake and Output 07/16/20 07/17/20 07/17/20 22:59 06:59 14:59 Output Total 200 250 900 Balance -200 -250 -900 Output: Urine 200 250 900 Uretheral ([place]) 50 - Labs Labs: Abnormal Lab Results - Last 24 Hours (Table) 07/16/20 07/16/20 07/16/20 Range/Units 06:59 18:27 18:27 WBC 16.8 H (3.8-10.6) k/uL RBC 3.77 L (3.80-5.40) m/uL Hgb (11.4-16.0) gm/dL Hct 33.9 L (34.0-46.0) % Neutrophils # 14.9 H (1.3-7.7) k/uL Neutrophils # (Manual) 12.90 H (1.3-7.7) k/uL Lymphocytes # 0.7 L (1.0-4.8) k/uL Metamyelocytes # (Man) 0.16 H (0) k/uL Sodium 131 L (137-145) mmol/L Carbon Dioxide 21 L (22-30) mmol/L Alkaline Phosphatase 166 H (38-126) U/L Total Protein 5.9 L (6.3-8.2) g/dL Albumin 3.0 L (3.5-5.0) g/dL Urine Appearance (Clear) Ur Specific [place] (1.001-1.035) Urine Protein (Negative) Urine Glucose (UA) (Negative) Urine Ketones (Negative) Urine Blood (Negative) Ur Leukocyte Esterase (Negative) Urine RBC (0-5) /hpf Urine WBC (0-5) /hpf Urine Mucus (None) /hpf 07/17/20 07/17/20 07/17/20 Range/Units 00:50 06:07 06:07 WBC 16.6 H (3.8-10.6) k/uL RBC 3.29 L (3.80-5.40) m/uL Hgb 10.4 L (11.4-16.0) gm/dL Hct 29.7 L (34.0-46.0) % Neutrophils # (1.3-7.7) k/uL Neutrophils # (Manual) (1.3-7.7) k/uL Lymphocytes # (1.0-4.8) k/uL Metamyelocytes # (Man) (0) k/uL Sodium 131 L (137-145) mmol/L Carbon Dioxide (22-30) mmol/L Alkaline Phosphatase (38-126) U/L Total Protein (6.3-8.2) g/dL Albumin (3.5-5.0) g/dL Urine Appearance Cloudy H (Clear) Ur Specific [place] 1.043 H (1.001-1.035) Urine Protein 2+ H (Negative) Urine Glucose (UA) Trace H (Negative) Urine Ketones 1+ H (Negative) Urine Blood Large H (Negative) Ur Leukocyte Esterase Moderate H (Negative) Urine RBC >182 H (0-5) /hpf Urine WBC 71 H (0-5) /hpf Urine Mucus Many H (None) /hpf
[2020-07-17 08:36] LABS: Large Platelets Present
--- NOTE | 2020-07-17 12:27 | XR ---
EXAMINATION TYPE: XR chest 1V portable DATE OF EXAM: 07/17/2020 COMPARISON: 04/20/2019 INDICATION: Post , pneumonia TECHNIQUE: Single frontal view of the chest is obtained. FINDINGS: The heart size is normal. The pulmonary vasculature is normal. The lungs are clear. There is a moderate size pneumoperitoneum present. This can be recent postsurgical. At the is older, this finding may be prominent. Correlation with the its surgery date is recommended. IMPRESSION: 1. Moderate size right pneumoperitoneum. Correlate with the timing of the . 2. Lung teresa are clear
--- NOTE | 2020-07-17 12:29 | P.PN ---
Progress Note - Text Progress Note Date: 07/17/20 Seen this morning at 0600 Patient's postop day 1 from surgery and section with subarachnoid block. She had spinal Duramorph. Her pain is under good control, she also had some weakness which she is being followed by a medical physician 4. They have been treating her with IV fluids and had run some tests. They've also take a urine sample. She has been able to ambulate. There is no significant lower extremity weakness, there is no sensory changes in her lower extremities. Please reach o ut anesthesia is any questions or concerns.
--- NOTE | 2020-07-17 15:15 | PN ---
PROGRESS NOTE DATE OF SERVICE: 07/17/2020 This 20-year-old woman admitted after surgery had some dehydration and change in mental status. Patient also had possibly UTI also. No chest pain. No palpitations. No fever. PHYSICAL EXAMINATION: Alert and oriented x3. Pulse 82, blood pressure 100/65, respirations 16, temperature 98.5, pulse ox 97% on room air. HEENT: Conjunctivae normal. NECK; No jugular venous distention. CARDIOVASCULAR: S1, S2 muffled. RESPIRATORY: Breath sounds diminished at the bases. No rhonchi, no crackles. ABDOMEN: Soft, status post surgery. LEGS: No edema, no swelling. NERVOUS SYSTEM: No focal deficits. LABS: WBC 16.6, hemoglobin 10.4, sodium 131. UA noted. ASSESSMENT: 1. Status post section. 2. Possible dehydration. 3. Hyponatremia. 4. Increased WBC possibly reactive. 5. Acute urinary tract infection. 6. 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 RECOMMENDATIONS AND DISCUSSION: Recommend to continue current mediations, continues symptomatic treatment. Continue with IV fluids at 0.9, and also recommend Rocephin 1 gram daily for the UTI. Urine culture has been requested. Further recommendations to follow. We will closely follow with DIRECTOR CUSTOM. MMODL / IJN: [id number] /
[2020-07-17] MEDS: IBUPROFEN 600 MG TAB PO SCH (20:48)
[2020-07-17] MEDS: HYDROcodone/APAP 5-325MG 1 EACH TAB PO PRN (21:35)
[2020-07-18] MEDS: HYDROcodone/APAP 5-325MG 1 EACH TAB PO PRN ×4 (01:52→20:52)
[2020-07-18] MEDS: IBUPROFEN 600 MG TAB PO SCH ×4 (03:58→23:50)
--- NOTE | 2020-07-18 08:36 | P.PNOBGPC ---
Subjective - Subjective Principal diagnosis: Postop day 2 Interval history: Patient is doing very well this morning. She is ambulating, voiding, and tolerating her diet. She feels much improved. Her vital signs are stable and afebrile. Baby is still in special care nursery. Patient reports: Reports appetite normal, Reports voiding normally, Reports pain well controlled, Reports ambulating normally : in NICU Objective - Vital Signs Latest vital signs: Vital Signs Temp Pulse Resp BP Pulse Ox 07/18/20 02:08 98.0 F 91 18 112/62 95 07/17/20 16:00 98 F 78 16 108/61 97 07/17/20 11:29 98.5 F 82 16 100/65 97 Intake and Output 07/17/20 07/18/20 07/18/20 22:59 06:59 14:59 Output Total 1400 Balance -1400 Output: Urine 1400 Other: # Voids 1 - Exam Lungs: bilateral: normal Chest: Normal S1, Normal S2 Extremities: Present: normal Abdomen: Present: normal appearance, soft. Absent: distention, tenderness Incision: Present: normal, dry, intact Uterus: Present: normal, firm - Labs Labs: Abnormal Lab Results - Last 24 Hours (Table) 07/17/20 Range/Units 06:07 Neutrophils # 14.4 H (1.3-7.7) k/uL Microbiology - Last 24 Hours (Table) 07/17/20 20:43 Urine Culture - Preliminary Urine,Clean Catch
[2020-07-18] MEDS: SENNOSIDES-DOCUSATE SODIUM 1 EACH TAB PO SCH ×2 (08:45→21:18)
--- NOTE | 2020-07-18 15:54 | PN ---
PROGRESS NOTE DATE OF SERVICE: 07/18/2020 This 20-year-old woman admitted after section being closely monitored. Patient has apparent UTI. White count is elevated. The patient also had an episode of confusion, which is improved significantly at this time. D-dimer is being requested. PAST MEDICAL HISTORY: Reviewed. REVIEW OF SYSTEMS: CARDIOVASCULAR SYSTEM: No angina. RESPIRATORY SYSTEM: As mentioned earlier. GI: As mentioned earlier. : As mentioned earlier. NERVOUS SYSTEM: No numbness or weakness. CURRENT MEDICATIONS: Current medications are reviewed and include [place], Rocephin, Benadryl, Motrin, Reglan, Zofran. Doses are reviewed. PHYSICAL EXAMINATION: Patient is alert and oriented x3. Pulse 96, blood pressure 111/67, respiration 18, temperature 98 degrees, pulse ox 97% on room air. HEENT: Conjunctivae normal. NECK: No jugular venous distention. CARDIOVASCULAR: S1, S2 muffled. RESPIRATORY: Breath sounds diminished at the bases. No rhonchi, no crackles. ABDOMEN: Soft, nontender. LEGS: No edema, no swelling. NERVOUS SYSTEM: No focal deficits. LABS: WBC 16.6, hemoglobin 10.4. D-dimer is 4.45. ASSESSMENT: 1. Status post section. 2. Possible dehydration. 3. Hyponatremia. 4. Elevated D-dimer. 5. Increased WBC, possibly reactive. 6. Acute urinary tract infection. 7. 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 DISCUSSION AND RECOMMENDATIONS: Recommend to continue current medications, continue symptomatic treatment. Continue the IV antibiotics. Otherwise, urine culture is pending at this time. D-dimer is elevated. I would also recommend a CT angio of the chest to complete the workup. Otherwise, we will follow the patient closely with you. Thank you Dr. Sotelo. MMSEBASTIANL / IJN: [id number] /
--- NOTE | 2020-07-18 15:58 | CT ---
CT CHEST FOR PULMONARY EMBOLISM. EXAMINATION TYPE: CT angio chest DATE OF EXAM: 07/18/2020 INDICATION: Shortness of breath post Csection. CT DLP: 534 mGycm, Automated exposure control for dose reduction was used. CONTRAST: Patient injected with 100 mL of Isovue 370. COMPARISON: None TECHNIQUE: CT of the chest is performed on a spiral scan at 2 mm thick sections. Study is performed with intravenous contrast intended for timing for evaluation for pulmonary embolism. Timing however i s predominantly aortic. Pulmonary embolism evaluation is nondiagnostic. This will limit additional po rtions of the evaluation. 3-D MIP images reconstructed by the technologist are reviewed on the compu ter in the coronal and sagittal planes. Contrast timing is suboptimal limiting the examination. FINDINGS: Contrast timing is suboptimal. However, there is a suggestion of a primary branch pulmonary embolism within the right lower lobe pulmonary arteries. This is not as apparent on reconstructed images. Berenice fact is not excluded No mediastinal or hilar adenopathy enlarged by CT criteria is evident. The ascending aorta diameter at the level of the main pulmonary artery is 2.9 cm. The main pulmonary artery diameter at the bifur cation is 2.3 cm. Lung windows are clear. Limited CT section through the upper abdomen. Pneumoperitoneum is noted which may be postsurgical. IMPRESSIONS: 1. Examination is nondiagnostic. Right pulmonary artery pulmonary embolism cannot be excluded . Cons ider repeat examination or VQ scan. Correlate with the pretest level of suspicion. 2. Pneumoperitoneum which can be post .
[2020-07-18] MEDS: HEPARIN SODIUM,PORCINE/PF 5,000 UNIT/0.5 ML SYRINGE SQ SCH (20:55)
--- NOTE | 2020-07-18 23:04 | NM ---
EXAMINATION TYPE: NM pul vent and perfuse DATE OF EXAM: 07/18/2020 COMPARISON: NONE HISTORY: TECHNIQUE: Utilizing inhalation of 29.9 mCi Tc 99m DTPA aerosol and intravenous injection of 3.19 mC i of Tc 99m MAA, ventilation and perfusion images are acquired post injection in multiple projections . FINDINGS: Ventilation and perfusion images are within normal limits. There is no evidence of segmental or subse gmental perfusion abnormality. I see no evidence of any significant airway disease.. IMPRESSION: Normal exam. There is very low probability of pulmonary embolism.
[2020-07-19 06:13] LABS: Basophils % (A) 0 %; Eosinophils # (A) 0.2 k/uL (0-0.7); Eosinophils % (A) 2 %; HCT 33.3 % (34.0-46.0); HGB 11.2 gm/dL (11.4-16.0); Lymphocytes # (A) 1.5 k/uL (1.0-4.8); Lymphocytes % (A) 17 %; MCHC 33.6 g/dL (31.0-37.0); MCV 92.2 fL (80.0-100.0); Mean Platelet Volume 10.2; Monocytes # (A) 0.5 k/uL (0-1.0); Monocytes % (A) 6 %; Neutrophils # (A) 6.6 k/uL (1.3-7.7); Neutrophils % (A) 74 %; Platelet Count 206 k/uL (150-450); RBC 3.61 m/uL (3.80-5.40); WBC 8.9 k/uL (3.8-10.6)
[2020-07-19 08:49] VITALS: BP 117/75; PULSE 78; RESP 14; TEMP 97.8
[2020-07-19] MEDS: HEPARIN SODIUM,PORCINE/PF 5,000 UNIT/0.5 ML SYRINGE SQ SCH (08:52)
[2020-07-19] MEDS: IBUPROFEN 600 MG TAB PO SCH (09:00)
[2020-07-19] MEDS: SENNOSIDES-DOCUSATE SODIUM 1 EACH TAB PO SCH (09:00)
--- NOTE | 2020-07-19 10:23 | P.DS ---
Providers Date of admission: 07/16/20 06:40 Expected date of discharge: 07/19/20 Attending physician: Jadon Sotelo Consults: 07/16/20 19:14 Consult Physician Urgent Consulting Provider: Vitor Dewey Consult Reason/Comments: dizziness, dehydration Do you want consulting provider notified?: Yes Placement Type Exists?: Yes Primary care physician: Stated None Hospital Course: Edgar is doing very well today postop day 3. She is ambulating, voiding and tolerating her diet. She voices no complaints. Yesterday she had some shortness of breath all ambulating and there was concern over possible early PE. She did have a full workup. D-dimer was ordered and was elevated but that would be normal in a / patient due to the increased in d- dimer with the itself and having just had surgery. A CT angiogram was positive for possible PE soon VQ scan was done but this was negative. She voices no complaints and has no shortness of breath or chest pain today she also has no pain in her legs. We'll plan for her to follow up with me in 1 week or sooner if should she have any other issues or questions. Her urinalysis which initially looked like a possible bladder infection has had no gross in the first 18 hours. She has been receiving IV antibiotics but will likely not need further antibiotics moving forward. She night and her extended timeframe to discuss the findings from yesterday and the symptoms and what had been going on yesterday and all of her questions are answered and she feels much more reassured and understands what was done and why it was done. On physical exam again vital signs are stable and afebrile. Heart regular, lungs clear, extremities without pain. Abdomen soft incisions clean dry and intact and her extremities are without pain but do show 2+ pitting edema which is normal postop from a section due to high volumes of fluid provided to support blood pressure during the section following the spinal. Assessment postop day 3. Plan discharged home follow up with me in 1 week. Prescription for Motrin and [place] for her to her pharmacy and a breast pump is provided. All the questions are answered for this time we'll notify medicine of plan for discharge and a lesser some other concern plan discharged home later today. Patient Condition at Discharge: Good Plan - Discharge Summary Discharge Rx Participant: No New Discharge Prescriptions: New HYDROcodone/APAP 5-325MG [[place] 5-325] 1 tab PO Q4HR PRN #30 tab PRN Reason: Pain Ibuprofen [Motrin] 600 mg PO Q6HR PRN #30 tab PRN Reason: Pain Discharge Medication List HYDROcodone/APAP 5-325MG [[place] 5-325] 1 tab PO Q4HR PRN #30 tab 07/19/20 [Rx] Ibuprofen [Motrin] 600 mg PO Q6HR PRN #30 tab 07/19/20 [Rx] Follow up Appointment(s)/Referral(s): Jadon Sotelo DO [Doctor of Osteopathic Medicine] - 1 Week Activity/Diet/Wound Care/Special Instructions: no Heavy lifting, limit stairs and driving and pelvic rest. If any high temperatures, heavy bleeding or severe pain call my office Discharge Disposition: HOME SELF-CARE
--- NOTE | 2020-07-19 16:03 | PN ---
PROGRESS NOTE DATE OF SERVICE: 07/19/2020 INTERVAL HISTORY: This 20-year-old woman is admitted after section, had possible dehydration, hyponatremia. The patient improved significantly. D-dimer was elevated, but CT angio and as well as V/Q scan did not show any evidence of pulmonary embolism. Patient also received a short course of antibiotics for presumed UTI. The cultures are negative so far. PHYSICAL EXAMINATION: GENERAL: Patient is alert and oriented times three. VITAL SIGNS: Pulse 78, blood pressure 170/74, respirations 14, temperature 97.8, pulse ox 98% on room air. HEENT: Conjunctivae normal. Oral mucosa moist. NECK: No jugular venous distention. No carotid bruits. No lymph node enlargement. RESPIRATORY: Breath sounds diminished at the bases. No rhonchi, no crackles. HEART: S1 and S2, muffled. ABDOMEN: Soft, no tenderness. EXTREMITIES: No edema, no swelling. NERVOUS: No focal deficits. LABS: WBC 11.2. COVID-19 is negative. ASSESSMENT: 1. Status post section. 2. Possible dehydration. 3. Hyponatremia. 4. Elevated D-dimer without any evidence of acute pulmonary embolism. 5. Increased WBC, possibly reactive, improved. 6. Acute urinary tract infection. 7. 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 DISCUSSION AND RECOMMENDATIONS: In this 20-year-old woman who presented with multiple medical issues as mentioned earlier, the patient is stable for discharge. I would recommend the patient follow up with Dr. Boucher in the outpatient setting in 2-3 days with CBC, BMP, incentive spirometry. I would also recommend follow up with [facility]. Further recommendations to follow. Other evaluations in the outpatient setting. Currently patient is stable for discharge. MMODL / IJN: [id number] /
== END 2020-07-19 12:43 | disposition home or self-care (01) | DRG 787 ==
LOC: 4FBP 06:40
PROVIDERS: ADMIT Obstetrics & Gynecology; ATTEND Obstetrics & Gynecology
PROC: 10D00Z1 Extraction of Products of Conception, Low, Open Approach (ICD-10-PCS; principal; 2020-07-16 06:15)
DX: O36.5930 Maternal care for other known or suspected poor fetal growth, third trimester, not applicable or unspecified (principal); E87.1 Hypo-osmolality and hyponatremia; O23.43 Unspecified infection of urinary tract in pregnancy, third trimester; Z37.0 Single live birth; Z3A.37 37 weeks gestation of pregnancy; O76 Abnormality in fetal heart rate and rhythm complicating labor and delivery; E86.0 Dehydration; O75.89 Other specified complications of labor and delivery; Q07.00 Arnold-Chiari syndrome without spina bifida or hydrocephalus; Z20.822 Contact with and (suspected) exposure to COVID-19; O99.284 Endocrine, nutritional and metabolic diseases complicating childbirth
CPT/HCPCS: 71045; 71275; 78582; 80048; 80053; 81001; 85025; 85379; 86850; 86900; 86901; 87086; 87635; 88307

== ENCOUNTER 2022-02-05 00:49 | Emergency (ER) | payer OTHER ==
[2022-02-05 01:05] VITALS: BP 118/79; PULSE 89; RESP 19; TEMP 97.8
[2022-02-05] MEDS ORDERED: ACETAMINOPHEN TAB 500 MG TAB PO STA (01:47)
[2022-02-05] MEDS ORDERED: PENICILLIN VK 500MG STARTER 4 TAB BTL PO STA (01:47)
[2022-02-05] MEDS ORDERED: IBUPROFEN 600 MG STARTER PACK 4 TAB BTL PO STA (01:47)
--- NOTE | 2022-02-05 01:50 | ED ---
ENT HPI - General Chief complaint: Dental/Oral Stated complaint: LT jaw pain Time Seen by Provider: 02/05/22 01:07 Source: patient, RN notes reviewed Mode of arrival: ambulatory - History of Present Illness Initial comments: This is a pleasant 21-year-old female presents to emergency with recurrent left dental pain. Patient states has been going on for about 1 month. Patient states the pain does radiate toward the TMJ and a little bit toward the left ear at times. She states it has never gone away completely but became worse over the past few days. Patient believes it's exacerbated by chewing. Nothing any fever. No difficulty swallowing. No immunosuppression. Patient is not diabetic. Patient is a nonsmoker. No headache, no fever or chills, no changes in vision or hearing, no sore throat or difficulty with speech, no neck pain, no chest pain or shortness of breath, no abdominal pain, no nausea or vomiting, no changes in urination or bowel movements, no numbness or tingling, no extremity pain, no skin rashes or lesions. Past medical, surgical, social, and family history reviewed. MD complaint: tooth pain - Related Data Previous Rx's Medication Instructions Recorded HYDROcodone/APAP 5-325MG [[place] 1 tab PO Q4HR PRN #30 tab 07/19/20 5-325] Ibuprofen [Motrin] 600 mg PO Q6HR PRN #30 tab 07/19/20 Acetaminophen Tab [Tylenol Tab] 500 mg PO Q6H PRN #24 tablet 02/05/22 Penicillin V Potassium [Pen Vee K] 500 mg PO QID #40 tablet 02/05/22 Allergies Allergy/AdvReac Type Severity Reaction Status Date / Time lactase [From Dairy Aid] AdvReac Nausea & Verified 02/05/22 01:04 Vomiting Review of Systems ROS Statement: Those systems with pertinent positive or pertinent negative responses have been documented in the HPI. ROS Other: All systems not noted in ROS Statement are negative. Past Medical History Additional Past Medical History / Comment(s): chiari malformation removed when 3 History of Any Multi-Drug Resistant Organisms: None Reported Past Surgical History: Section Additional Past Surgical History / Comment(s): Chiari removal when 3 years old. Past Anesthesia/Blood Transfusion Reactions: No Reported Reaction Past Psychological History: No Psychological Hx Reported Smoking Status: Never smoker Past Alcohol Use History: None Reported Past Drug Use History: None Reported - Past Family History Father History Unknown: Yes Additional Family Medical History / Comment(s): pt adopted Mother History Unknown: Yes Additional Family Medical History / Comment(s): pt adopted General Exam - General Exam Comments Initial Comments: Patient does not appear to be ill or toxic. Vital signs are reviewed. Short well-hydrated. Normal capillary refill. No mottling General appearance: alert, in no apparent distress Head exam: Present: atraumatic, normocephalic, normal inspection Eye exam: Present: normal appearance, EOMI ENT exam: Present: normal oropharynx, mucous membranes moist, TM's normal bilaterally, normal external ear exam, other (Patient has an extensive dental caries tooth #17 without surrounding inflammation or abscess). Absent: mucous membranes dry Neck exam: Present: normal inspection, full ROM. Absent: tenderness, meningismus, lymphadenopathy Respiratory exam: Present: normal lung sounds bilaterally. Absent: respiratory distress, wheezes, rales, rhonchi, stridor Cardiovascular Exam: Present: regular rate, normal rhythm, normal heart sounds. Absent: systolic murmur, diastolic murmur, rubs, gallop, clicks GI/Abdominal exam: Present: soft. Absent: tenderness Back exam: Present: normal inspection Neurological exam: Present: alert, oriented X3, CN II-XII intact, normal gait Psychiatric exam: Present: normal affect, normal mood Skin exam: Present: warm, dry, intact, normal color. Absent: rash, cyanosis, erythema, pallor, mottled Course Vital Signs 02/05/22 02/05/22 01:01 02:02 Temperature 97.8 F 97.8 F Pulse Rate 89 89 Respiratory 19 19 Rate Blood Pressure 118/79 118/79 O2 Sat by Pulse 100 100 Oximetry Medical Decision Making - Medical Decision Making Patient has a significant dental. To tooth #17. This appears to be eroded into the dental pulp. There is no evidence of dental abscess or significant surrounding erythema. Airway is patent. Patient be treated with antibiotics and given follow-up information for dentistry. Patient is breast-feeding. We will use regular Tylenol and ibuprofen for pain control. Patient's child is 18 months old. I did warn the patient that a small amount of the NSAID would come out in the breast milk. Patient was told to return to the ER for any signs or symptoms worsen. Told to return immediately if any other problems arise. All questions answered. Treatment plan discussed. Patient in agreement Every effort has been made to ensure accuracy of this dictation. However, due to the limitations of electronic medical records and dictation devices, errors in charting still occur. Supervising Dr. Vázquez Disposition Clinical Impression: Pain due to dental caries Disposition: HOME SELF-CARE Condition: Stable Instructions (If sedation given, give patient instructions): Toothache (ED) Additional Instructions: Make an appointment with the dentist as soon as possible. Take antibiotics as directed. Tylenol is safe for breast-feeding. There is a small amount of ibuprofen that is released in the breast milk, however, he likely can use the [id number] strength without any adverse event. Follow-up with your regular physician as directed. Return to the ER immediately if any symptoms worsen, new symptoms arise, or any other problems develop. Prescriptions: Penicillin V Potassium [Pen Vee K] 500 mg PO QID #40 tablet Acetaminophen Tab [Tylenol Tab] 500 mg PO Q6H PRN #24 tablet PRN Reason: Pain Is patient prescribed a controlled substance at d/c from ED?: No Referrals: Daniel Mak DDS [STAFF PHYSICIAN] - As Soon As Possible Time of Disposition: 01:49
== END 2022-02-05 02:03 | disposition home or self-care (01) ==
LOC: EC 00:49
DX: K08.89 Other specified disorders of teeth and supporting structures (principal); Z91.011 Allergy to milk products
CPT/HCPCS: 99282

== ENCOUNTER 2022-09-20 11:15 | Emergency (ER) | payer OTHER ==
[2022-09-20 11:24] VITALS: RESP 18
--- NOTE | 2022-09-20 12:18 | XR ---
EXAMINATION TYPE: XR ankle complete RT DATE OF EXAM: 09/20/2022 COMPARISON: NONE HISTORY: Pain FINDINGS: Three views of the ankle demonstrate the ankle mortise to be intact and symmetric. The joint spaces are preserved. The osseous structures are intact. Diffuse osteopenia. IMPRESSION: 1. No definite acute fracture or dislocation, if symptoms persist follow-up study in 7 to 10 days wou ld be suggested.
--- NOTE | 2022-09-20 12:28 | ED ---
Lower Extremity Injury HPI - General Chief Complaint: Extremity Injury, Lower Stated Complaint: Ankle Injury (RT) Time Seen by Provider: 09/20/22 11:38 Source: patient, RN notes reviewed Mode of arrival: wheelchair Limitations: no limitations - History of Present Illness Initial Comments: This is a 22-year-old male who presents to the emergency department for a right ankle injury. States that she was taking out the trash, when she subsequently stepped in a hole and twisted her right ankle. She has since been unable to bear weight on the right ankle. Denies hitting her head or sustaining any other injuries. Denies any fevers, chills, sore throat, cough, dyspnea, chest pain, palpitations, abdominal pain, nausea, vomiting, diarrhea, back pain, or headaches. MD Complaint: ankle injury - Related Data Previous Rx's Medication Instructions Recorded HYDROcodone/APAP 5-325MG [[place] 1 tab PO Q4HR PRN #30 tab 07/19/20 5-325] Ibuprofen [Motrin] 600 mg PO Q6HR PRN #30 tab 07/19/20 Acetaminophen Tab [Tylenol Tab] 500 mg PO Q6H PRN #24 tablet 02/05/22 Penicillin V Potassium [Pen Vee K] 500 mg PO QID #40 tablet 02/05/22 Allergies Allergy/AdvReac Type Severity Reaction Status Date / Time lactase [From Dairy Aid] AdvReac Nausea & Verified 09/20/22 11:23 Vomiting Review of Systems ROS Statement: Those systems with pertinent positive or pertinent negative responses have been documented in the HPI. ROS Other: All systems not noted in ROS Statement are negative. Past Medical History Additional Past Medical History / Comment(s): chiari malformation removed when 3 History of Any Multi-Drug Resistant Organisms: None Reported Past Surgical History: Section Additional Past Surgical History / Comment(s): Chiari removal when 3 years old. Past Anesthesia/Blood Transfusion Reactions: No Reported Reaction Past Psychological History: No Psychological Hx Reported Smoking Status: Never smoker Past Alcohol Use History: None Reported Past Drug Use History: None Reported - Past Family History Father History Unknown: Yes Additional Family Medical History / Comment(s): pt adopted Mother History Unknown: Yes Additional Family Medical History / Comment(s): pt adopted General Exam Limitations: no limitations General appearance: alert, in no apparent distress Head exam: Present: atraumatic, normocephalic, normal inspection Respiratory exam: Present: normal lung sounds bilaterally. Absent: respiratory distress, wheezes, rales, rhonchi, stridor Cardiovascular Exam: Present: regular rate, normal rhythm, normal heart sounds. Absent: systolic murmur, diastolic murmur, rubs, gallop, clicks Extremities exam: Present: other (Tenderness to palpation over the right medial malleolus. Limited passive range of motion secondary to pain. 2+ DP and PT pulses and capillary refill less than 1 second.) Neurological exam: Present: alert, oriented X3, CN II-XII intact Psychiatric exam: Present: normal affect, normal mood Skin exam: Present: warm, dry, intact, normal color. Absent: rash Course Vital Signs 09/20/22 09/20/22 11:21 14:00 Temperature 99.2 F 98.2 F Pulse Rate 109 H 98 Respiratory 18 18 Rate Blood Pressure 109/73 138/82 O2 Sat by Pulse 100 100 Oximetry Medical Decision Making - Medical Decision Making This is a 22-year-old female who presents to the emergency department for right ankle pain. Was pt. sent in by a medical professional or institution? @ -No Did you speak to anyone other than the patient for history? @ -No Did you review nursing and triage notes? @ -Yes, and I agree, it is accurate with regards to the patient's symptoms. Were old charts reviewed? @ -No Differential Diagnosis? @ -Differential Ankle Pain: Fracture, dislocation, contusion, sprain, this is not meant to be an all- inclusive list. EKG interpreted by me (3pts min.)? @ -Not obtained X-rays interpreted by me (1pt min.)? @ -X-ray of the right ankle obtained. My interpretation identifies no acute fractures or dislocations. CT interpreted by me (1pt min.)? @ -Not obtained U/S interpreted by me (1pt. min.)? @ -Not obtained What testing was considered but not performed? (CT, X-rays, U/S, labs)? Why? @ -None What meds were considered but not given? Why? @ -None Did you discuss the management of the patient with other professionals? @ -No Did you reconcile home meds? @ -No Was smoking cessation discussed for >3mins.? @ -No Was critical care preformed (if so, how long)? @ -No Were there social determinants of health that impacted care today? How? (Homelessness, low income, unemployed, alcoholism, drug addiction, transportation, low edu. Level, literacy, decrease access to med. care, half-way, rehab)? @ -No Was there de-escalation of care discussed even if they declined? (Discuss DNR or withdrawal of care, Hospice)? @ -No What co-morbidities impacted this encounter? (DM, HTN, Smoking, COPD, CAD, Cancer, CVA, Hep., AIDS, mental health diagnosis, sleep apnea, morbid obesity)? @ -None Was patient admitted / discharged? @ -Discharged. X-ray of the right ankle obtained revealing no acute findings. Advised the patient that she likely has an ankle sprain. However, she was advised that if symptoms persist after 7-10 days, she will need repeat x-rays to evaluate for any possible fractures that are not currently identifiable. Patient was given a velcro stirrup splint for support. Crutches were also provided per her request. Patient is instructed to alternate with ibuprofen and tylenol for pain relief and apply ice for 15-20 minutes every 2-3 hours for the first 2-3 days followed by heat there afterwards. Undiagnosed new problem with uncertain prognosis? @ -None Drug Therapy requiring intensive monitoring for toxicity (Heparin, Nitro, Insulin, Cardizem)? @ -None Were any procedures done? @ -None Diagnosis/symptom? @ -Right ankle sprain Acute, or Chronic, or Acute on Chronic? @ -Acute Uncomplicated (without systemic symptoms) or Complicated (systemic symptoms)? @ -Uncomplicated Side effects of treatment? @ -None Exacerbation, Progression, or Severe Exacerbation] @ -Not applicable Poses a threat to life or bodily function? @ -No Return precautions reviewed in depth, the patient is instructed to return to the emergency department with any new, worsening, or concerning symptoms. Patient verbalized understanding. This case was discussed in detail with the attending ED physician, Dr. Estrada. Presentation, findings, and treatment plan discussed in detail as well. - Radiology Data Radiology results: report reviewed, image reviewed Disposition Clinical Impression: Right ankle sprain Disposition: HOME SELF-CARE Instructions (If sedation given, give patient instructions): Ankle Sprain (ED), Ankle Stirrup Splint (ED) Additional Instructions: Return to the emergency department with any new, worsening, or concerning symptoms. Alternate with ibuprofen and Tylenol as needed for pain relief. Apply ice for 15-20 minutes every 2-3 hours and keep the ankle elevated. Follow up with your primary care provider in 1-2 days. Is patient prescribed a controlled substance at d/c from ED?: No Referrals: None,Stated [Primary Care Provider] - 1-2 days
[2022-09-20] MEDS ORDERED: IBUPROFEN 600 MG STARTER PACK 4 TAB BTL PO STA (12:37)
[2022-09-20] MEDS ORDERED: ACET/COD 300 MG/30 MG STARTER PACK 6 TAB BTL PO STA (12:37)
[2022-09-20] MEDS ORDERED: IBUPROFEN 600 MG TAB PO STA (12:38)
[2022-09-20] MEDS ORDERED: HYDROcodone/APAP 5-325MG 1 EACH TAB PO STA (12:38)
[2022-09-20 14:01] VITALS: BP 138/82; PULSE 98; TEMP 98.2
== END 2022-09-20 14:01 | disposition home or self-care (01) ==
LOC: EC 11:15
DX: S93.401A Sprain of unspecified ligament of right ankle, initial encounter (principal); Z88.8 Allergy status to other drugs, medicaments and biological substances; X50.1XXA Overexertion from prolonged static or awkward postures, initial encounter
CPT/HCPCS: 99283